=== PATIENT | female | born 1950 | race Caucasian/White ===

== ENCOUNTER 2017-10-23 05:37 | Observation (INO) | payer MEDICARE ==
[~2017-10-23] VITALS: Ht 162.6 cm; Wt 78.5 kg
--- OUTSIDE RECORDS SUMMARY | ~2017-10-23 | XMS | Encounter Summary ---
Demographics + + + | Address | [address] | | | [place] [address] | + + + | Home Phone | | + + + | Preferred Language | Unknown | + + + | Marital Status | | + + + | Mormon Affiliation | Unknown | + + + | Race | Unknown | + + + | Ethnic Group | Unknown | + + + Author + + + | Author | [facility] | | | and [place] | + + + | Organization | [facility] | | | and [place] | + + + | Address | Unknown | + + + | Phone | Unavailable | + + + Support + + +---------+ + | Name | Relationship | Address | Phone | + + +---------+ + | Brandon Glass | ECON | Unknown | | + + +---------+ + Care Team Providers + +------+ + | Care Charge Rn Name | Role | Phone | + +------+ + | Jony Haque DO | PCP | | + +------+ + Reason for Visit + + + | Reason | Comments | + + + | CPAP Follow Up | | + + + Encounter Details +--------+---------+ + + + | Date | Type | Department | Care Team | Description | +--------+---------+ + + + | 07/31/ | Office | [facility] | Robert King PA | ADRIAN on CPAP (Primary | | 2018 | Visit | SLEEP DISORDER [address] | [address] | Dx) | | | | [address] | [place], [place] | | | | | [place] [address] | [address] | | | | | [phone] | | | +--------+---------+ + + + Social History + +-------+ +--------+ + | Tobacco Use | Types | Packs/Day | Years | Date | | | | | Used | | + +-------+ +--------+ + | Former Smoker | | | | 11/17/1972 - | | | | | | 11/18/1987 | + +-------+ +--------+ + + + + | Sex Assigned at | Date Recorded | | | | + + + | Not on file | | + + + as of this encounter Last Filed Vital Signs + + + + | Vital Sign | Reading | Time Taken | + + + + | Blood Pressure | 144/74 | 07/31/20171302 PDT | + + + + | Pulse | 87 | 07/31/20171302 PDT | + + + + | Temperature | - | - | + + + + | Respiratory Rate | 16 | 07/31/20171302 PDT | + + + + | Oxygen Saturation | 96% | 07/31/2017 1303 PDT | + + + + | Inhaled Oxygen | - | - | | Concentration | | | + + + + | Weight | - | - | + + + + | Height | 162.6 cm (5' 4") | 07/31/2017 1303 PDT | + + + + | Body Mass Index | - | - | + + + + in this encounter Progress Notes Robert King PA - 07/31/2017 1300 PDTFormatting of this note may be different from the or iginal. Subjective: Patient ID: Bel Glass is a 67 y.o. female. HPI last office visit: 05/27/2017 date of split-night polysomnography: 01/10/2000 AHI: 115.3 O2%: 83.8% Machine type: ResMed AirSense 10 Mask type: DME: [place] in [place] pressure: 12-19 cm Median: 13.0 cm 95%: 13.8 cm maximum: 14.5 cm Nights using CPAP: 66/66 % of nights >4 hours: 100% average usage (all nights): 8:24 average usage (nights used): 8:24 AHI: 2.3 Bel comes in for CPAP compliance. She is doing well with her ResMed AirSense 10. She feels it is working better than her previous machine. She does not have any questions or co ncerns. I have discussed the download in detail. This shows that her sleep apnea is controlled, wi th an AHI of 2.0. It also shows that her leaks are controlled. It shows that she is wearin g her CPAP >4 hours for 100% of the nights during 30 consecutive nights. BP 144/74 | Pulse 87 | Resp 16 | Ht 1.626 m (5' 4") | SpO2 96% Review of Systems Objective: Physical Exam Assessment: Problem #1: OBSTRUCTIVE SLEEP APNEA (ZBG04-F75.33) This is controlled with CPAP. She is doing well with her CPAP usage with her ResMed AirSen se 10. She has used her CPAP >4 hours for 100% of the nights for 30 consecutive nights. Plan: 1. She is to continue with CPAP indefinitely. 2. Touch base with medical supplier twice per year to ensure that all equipment is satisfa ctory. I will follow up again in 1 year, sooner prn. At that time we will reassess with all appro priate paperwork. Fifteen minutes were spent [id number], with the majority of time spent in counseling. Robert King PA-C cc: Jony Haque MD in this encounter Plan of Treatment +--------+---------+ + + + | Date | Type | Specialty | Care Team | Description | +--------+---------+ + + + | 08/04/ | Office | Sleep Medicine | Robert King PA | | | 2018 | Visit | | [address] | | | | | | [place] | | | | | | [address] | | | | | | | | +--------+---------+ + + + as of this encounter Visit Diagnoses + + | Diagnosis | + + | ADRIAN on CPAP - Primary | + + | Obstructive sleep apnea (adult) (pediatric) | + +
--- OUTSIDE RECORDS SUMMARY | ~2017-10-23 | XMS | Clinical Summary ---
Demographics + + + | Address | [address] | | | [place] [address] | + + + | Home Phone | | + + + | Preferred Language | Unknown | + + + | Marital Status | | + + + | Protestant Affiliation | Unknown | + + + | Race | Unknown | + + + | Ethnic Group | Unknown | + + + Author + + + | Author | [facility] | | | and [place] | + + + | Organization | [facility] | | | and [place] | [...] Team Providers + +------+ + | Care Lamp Cleaner Street Light Name | Role | Phone | + +------+ + | Jony Haque DO | PP | | + +------+ + Allergies No Known Allergies Current Medications + + +--------+---------+------+------+-------+ | Prescription | Sig. | Disp. | Refills | Star | End | Statu | | | | | | t | Date | s | | | | | | Date | | | + + +--------+---------+------+------+-------+ | fluticasone | 2 sprays by Nasal | | | | | Activ | | (FLONASE) 50 | route Daily. | | | | | e | | mcg/nasal spray | | | | | | | + + +--------+---------+------+------+-------+ | UNCODED MEDICATION | Diagnosis: | 1 | 0 | 08/2 | | Activ | | | Obstructive Sleep | Device | | 11/20 | | e | | | ApneaICD-9: | | | 13 | | | | | 327.23Length of | | | | | | | | Need: 99 Months | | | | | | + + +--------+---------+------+------+-------+ | METFORMIN HCL PO | Take 1,000 mg by | | | | | Activ | | | mouth Daily. | | | | | e | + + +--------+---------+------+------+-------+ | LEVOTHYROXINE | Take 150 mcg by | | | | | Activ | | SODIUM | mouth Daily. | | | | | e | + + +--------+---------+------+------+-------+ | | Take 1 tablet by | | | | | Activ | | lisinopril-hydrochlo | mouth Daily. | | | | | e | | rothiazide | | | | | | | | (PRINZIDE,ZESTORETIC | | | | | | | | ) 20-12.5 MG per | | | | | | | | tablet | | | | | | | + + +--------+---------+------+------+-------+ | atorvaSTATin | Take 10 mg by mouth | | | | | Activ | | (LIPITOR) 10 mg | nightly. | | | | | e | | tablet | | | | | | | + + +--------+---------+------+------+-------+ | Lutein 10 MG TABS | Take by mouth | | | | | Activ | | | Daily. | | | | | e | + + +--------+---------+------+------+-------+ | Multiple | Take by mouth every | | | | | Activ | | Vitamins-Minerals | evening. | | | | | e | | (WOMENS 50+ MULTI | | | | | | | | VITAMIN/MIN) TABS | | | | | | | + + +--------+---------+------+------+-------+ | cholecalciferol | Take 1,000 Units by | | | | | Activ | | (VITAMIN D-3) 1000 | mouth Daily. | | | | | e | | units TABS | | | | | | | + + +--------+---------+------+------+-------+ | Calcium Carbonate | Take by mouth. | | | | | Activ | | (CALCIUM 600 PO) | | | | | | e | + + +--------+---------+------+------+-------+ | Multiple | Take by mouth | | | | | Activ | | Vitamins-Minerals | Daily. | | | | | e | | (HAIR SKIN AND NAILS | | | | | | | | FORMULA) TABS | | | | | | | + + +--------+---------+------+------+-------+ Active Problems + + + | Problem | Noted Date | + + + | OBSTRUCTIVE SLEEP APNEA | 09/21/2010 | + + + | DIVERTICULITIS | 09/21/2010 | + + + + + | Overview: ICD-10 Record update | + + + +---+ | HYPERTENSION | | + +---+ | DIABETES, TYPE 2 | | + +---+ | FH DIABETES | | + +---+ | FH BREAST CANCER | | + +---+ Encounters +--------+---------+ + + + | Date | Type | Specialty | Care Team | Description | +--------+---------+ + + + | 07/31/ | Office | | Robert King PA | ADRIAN on CPAP (Primary | | 2018 | Visit | | | Dx) | +--------+---------+ + + + from Last 3 Months Social History + +-------+ +--------+ + | [...] on file | | + + + Last Filed Vital Signs + + + [...] + | Oxygen Saturation | 96% | 07/31/20171302 PDT | + + + + | Inhaled Oxygen | - | - | | Concentration | | | + + + + | Weight | 79 kg (174 lb 1.6 | 11/21/20151046 PDT | | | oz) | | + + + + | Height | 162.6 cm (5' 4") | 07/31/2017 1303 PDT | + + + + | Body Mass Index | 36.39 | 11/21/20151046 PDT | + + + + Plan of Treatment +--------+---------+ + + + | Date | Type | Specialty | Care Team | Description | +--------+---------+ + + + | 08/04/ | Office | | Robert King PA | | | 2019 | Visit | | [address] | | | | | | [place] | | | | | | [address] | | | | | | | | +--------+---------+ + + + + + + + + | Health Maintenance | Due Date | Last Done | Comments | + + + + + | Hepatitis C | | | | | Screening | 3 | | | + + + + + | Diabetic Eye Exam | | | | | (Bi-Annually) | 1 | | | + + + + + | Diabetic Foot Exam | | | | | | 1 | | | + + + + + | Hemoglobin A1c Q3 | | | | | Months | 1 | | | + + + + + | Vaccine: | | | | | Dtap/Tdap/Td (1 - | 2 | | | | Tdap) | | | | + + + + + | BREAST CANCER | | | | | SCREENING (MAMM Q2 | 3 | | | | YEARS 50-74) | | | | + + + + + | Colorectal Cancer | | | | | Screening | 3 | | | | (Colonoscopy) | | | | + + + + + | Vaccine: | | | | | Pneumococcal 65+ | 8 | | | | Low/Medium Risk (1 | | | | | of 2 - PCV13) | | | | + + + + + | Vaccine: Influenza | | | | | (#1) | 8 | | | + + + + + Results Not on filefrom Last 3 Months Insurance + +--------+ +--------+ + + | Payer | Benefi | Subscriber | Type | Phone | Address | | | t Plan | ID | | | | | | / | | | | | | | Group | | | | | + +--------+ +--------+ + + | MODA | MODA | [id number] | Indemn | [phone]- | [address] [address] | | | HEALTH | | ity | [address] | [place] [address] | | | MDCR | | | | | | | SUPPL | | | | | + +--------+ +--------+ + + | MEDICARE | MEDICA | [id number] | Medica | +1- | | | | RE | | re | [phone] | | | | PART A | | | | | | | AND B | | | | | + +--------+ +--------+ + + + +--------+ +--------+ + + | Guarantor Name | Accoun | Relation to | Date | Phone | Billing Address | | | t Type | Patient | of | | | | | | | | | | + +--------+ +--------+ + + | BEL GLASS | Person | Self [birth year] Home: | [address] | | | al/Fam | | 1951 | [phone] | [place] [address] | | | td | | | [phone] | | + +--------+ +--------+ + +
--- OUTSIDE RECORDS SUMMARY | ~2017-10-23 | XMS | Clinical Summary ---
Demographics + + + | Address | [address] | | | [place] [address] | + + + | Home Phone | | + + + | Preferred Language | Unknown | + + + | Marital Status | | + + + | Scientologist Affiliation | Unknown | + + + | Race | Unknown | + + + | Ethnic Group | Unknown | + + + Author + + + | Author | [facility] | | | and [place] | + + + | Organization | [facility] | | | and [place] | [...] Team Providers + +------+ + | Care Automotive Tire Tester Name | Role | Phone | + [...] 2019 | Visit | | [address] | | | | | | [place] | | | | | | [address] | | | | | | | [...] + + | MODA | MODA | [id number] | Indemn | [phone]- | [address] [address] | | | HEALTH | | ity | [address] | [place] [address] | | | MDCR | | | | | | | SUPPL | | | | | + +--------+ +--------+ + + | MEDICARE | MEDICA | [id number] | Medica | +1- | | | [...] Self | [birth year] | Home: | [address] | | | al/Fam | | 1951 | [phone] | [place] [address] | | | td | | | [phone] | | + +--------+ +--------+ + +
--- OUTSIDE RECORDS SUMMARY | ~2017-10-23 | XMS | Encounter Summary ---
Demographics + + + | Address | [address] | | | [place] [address] | + + + | Home Phone | | + + + | Preferred Language | Unknown | + + + | Marital Status | | + + + | Episcopalian Affiliation | Unknown | + + + | Race | Unknown | + + + | Ethnic Group | Unknown | + + + Author + + + | Author | [facility] | | | and [place] | + + + | Organization | [facility] | | | and [place] [...] Team Providers + +------+ + | Care Cushion Cover Inspector Name | Role | Phone | + [...] + | 07/31/ | Office | [facility] | Robert King PA | ADRIAN on CPAP (Primary | | 2018 | Visit | SLEEP DISORDER [address] | [address] | Dx) | | | | [address] [place] | [place], [place] | | | | | [place] [address] | [address] | | | | | [phone] | | | +--------+---------+ + + + [...] type: ResMed AirSense 10 Mask type: DME: [place] in [place] pressure: 12-19 cm Median: 13.0 cm 95%: [...] Exam Assessment: Problem #1: OBSTRUCTIVE SLEEP APNEA (JAE73-T46.33) This is controlled with CPAP. She is [...] appro priate paperwork. Fifteen minutes were spent [id number], with the majority of time spent in counseling. Robert King PA-C cc: Jony Haque MD in this encounter Plan of Treatment +--------+---------+ + + + | Date | Type | Specialty | Care Team | Description | +--------+---------+ + + + | 08/04/ | Office | Sleep Medicine | Robert King PA | | | 2018 | Visit | | [address] | | | | | | [place] | | | | | | [address] | | | | | | | | +--------+---------+ + + + as of this encounter Visit Diagnoses + + | Diagnosis | + + | ADRIAN on CPAP - Primary | + + | Obstructive sleep apnea (adult) (pediatric) | + +
--- OUTSIDE RECORDS SUMMARY | ~2017-10-23 | XMS | Encounter Summary ---
Demographics + + + | Address | [address] | | | [place] [address] | + + + | Home Phone | | + + + | Preferred Language | Unknown | + + + | Marital Status | | + + + | Restoration Affiliation | Unknown | + + + | Race | Unknown | + + + | Ethnic Group | Unknown | + + + Author + + + | Author | [facility] | | | and [place] | + + + | Organization | [facility] | | | and [place] [...] Team Providers + +------+ + | Care Senior Litigation Paralegal Name | Role | Phone | + [...] + | 07/31/ | Office | [facility] | Robert King PA | ADRIAN on CPAP (Primary | | 2018 | Visit | SLEEP DISORDER [address] | [address] | Dx) | | | | [address] [place] | [place], [place] | | | | | [place] [address] | [address] | | | | | [phone] | | | +--------+---------+ + + + [...] type: ResMed AirSense 10 Mask type: DME: [place] in [place] pressure: 12-19 cm Median: 13.0 cm 95%: [...] Exam Assessment: Problem #1: OBSTRUCTIVE SLEEP APNEA (PTF17-C10.33) This is controlled with CPAP. She is [...] appro priate paperwork. Fifteen minutes were spent [id number], with the majority of time spent in counseling. Robert King PA-C cc: Jony Haque MD in this encounter Plan of Treatment +--------+---------+ + + + | Date | Type | Specialty | Care Team | Description | +--------+---------+ + + + | 08/04/ | Office | Sleep Medicine | Robert King PA | | | 2018 | Visit | | [address] | | | | | | [place] | | | | | | [address] | | | | | | | | +--------+---------+ + + + as of this encounter Visit Diagnoses + + | Diagnosis | + + | ADRIAN on CPAP - Primary | + + | Obstructive sleep apnea (adult) (pediatric) | + +
--- OUTSIDE RECORDS SUMMARY | ~2017-10-23 | XMS | Clinical Summary ---
Demographics + + + | Address | [address] | | | [place] [address] | + + + | Home Phone | | + + + | Preferred Language | Unknown | + + + | Marital Status | | + + + | Restoration Affiliation | Unknown | + + + | Race | Unknown | + + + | Ethnic Group | Unknown | + + + Author + + + | Author | [facility] | | | and [place] | + + + | Organization | [facility] | | | and [place] [...] Team Providers + +------+ + | Care Basic Sciences Professor Name | Role | Phone | + [...] 2019 | Visit | | [address] | | | | | | [place] | | | | | | [address] | | | | | | | [...] + + | MODA | MODA | [id number] | Indemn | [phone]- | [address] [address] | | | HEALTH | | ity | [address] | [place] [address] | | | MDCR | | | | | | | SUPPL | | | | | + +--------+ +--------+ + + | MEDICARE | MEDICA | [id number] | Medica | +1- | | | [...] Self | [birth year] | Home: | [address] | | | al/Fam | | 1951 | [phone] | [place] [address] | | | td | | | [phone] | | + +--------+ +--------+ + +
--- OUTSIDE RECORDS SUMMARY | ~2017-10-23 | XMS | Encounter Summary ---
Demographics + + + | Address | [address] | | | [place] [address] | + + + | Home Phone | | + + + | Preferred Language | Unknown | + + + | Marital Status | | + + + | Holiness Affiliation | Unknown | + + + | Race | Unknown | + + + | Ethnic Group | Unknown | + + + Author + + + | Author | [facility] | | | and [place] | + + + | Organization | [facility] | | | and [place] [...] Team Providers + +------+ + | Care Cardiovascular Specialist Name | Role | Phone | + [...] + | 07/31/ | Office | [facility] | Robert King PA | ADRIAN on CPAP (Primary | | 2018 | Visit | SLEEP DISORDER [address] | [address] | Dx) | | | | [address] [place] | [place], [place] | | | | | [place] [address] | [address] | | | | | [phone] | | | +--------+---------+ + + + [...] type: ResMed AirSense 10 Mask type: DME: [place] in [place] pressure: 12-19 cm Median: 13.0 cm 95%: [...] Exam Assessment: Problem #1: OBSTRUCTIVE SLEEP APNEA (FDM14-Q60.33) This is controlled with CPAP. She is [...] appro priate paperwork. Fifteen minutes were spent [id number], with the majority of time spent in counseling. Robert King PA-C cc: Jony Haque MD in this encounter Plan of Treatment +--------+---------+ + + + | Date | Type | Specialty | Care Team | Description | +--------+---------+ + + + | 08/04/ | Office | Sleep Medicine | Robert King PA | | | 2018 | Visit | | [address] | | | | | | [place] | | | | | | [address] | | | | | | | | +--------+---------+ + + + as of this encounter Visit Diagnoses + + | Diagnosis | + + | ADRIAN on CPAP - Primary | + + | Obstructive sleep apnea (adult) (pediatric) | + +
--- OUTSIDE RECORDS SUMMARY | ~2017-10-23 | XMS | Clinical Summary ---
Demographics + + + | Address | [address] | | | [place] [address] | + + + | Home Phone | | + + + | Preferred Language | Unknown | + + + | Marital Status | | + + + | Hoahaoism Affiliation | Unknown | + + + | Race | Unknown | + + + | Ethnic Group | Unknown | + + + Author + + + | Author | [facility] | | | and [place] | + + + | Organization | [facility] | | | and [...] Team Providers + +------+ + | Care Offal Icer Poultry Name | Role | Phone | + [...] 2019 | Visit | | [address] | | | | | | [place] | | | | | | [address] | | | | | | | [...] + + | MODA | MODA | [id number] | Indemn | [phone]- | [address] [address] | | | HEALTH | | ity | [address] | [place] [address] | | | MDCR | | | | | | | SUPPL | | | | | + +--------+ +--------+ + + | MEDICARE | MEDICA | [id number] | Medica | +1- | | | [...] Self | [birth year] | Home: | [address] | | | al/Fam | | 1951 | [phone] | [place] [address] | | | td | | | [address] | | + +--------+ +--------+ + +
[~2017-10-23 05:37] MED LIST: CALCIUM + VITA1 EACH PO; DAILY MULTIPLE1 EACH PO; FLUTICASONE PRO16 GM NS; FORTAMET500 MG PO; IBUPROFEN800 MG PO; LIPITOR10 MG PO; LISINOPRIL-HCT1 EACH PO; LISINOPRIL20 MG PO; NORCO 5-325 TA1 EACH PO; SYNTHROID125 MCG PO; VITAMIN D31000 UNI1 PO
--- NOTE | 2017-10-23 07:50 | NUR ---
PT HERE FROM ER, ALERT AND ORIENTED X4. PT DENIES PAIN, NAUSEA, AND SOB AT THIS TIME. PT ABLE TO TALK, AND IS EASILY UNDERSTOOD BY ALL CARE STAFF. VITALS WNL AT THIS TIME, PT ON ROOM AIR.
--- NOTE | 2017-10-23 08:19 | NUR ---
IV SITE INTACT, NO REDNESS OR SWELLING NOTED, PT DENIES PAIN WITH FLUSH. PT DENIES PAIN, NAUSEA, AND SOB IN GENERAL. PT ALERT AND ORIENTED X4, CHEERFUL AND COOPERATIVE. SPOUSE IS AT THE BEDSIDE.
--- NOTE | 2017-10-23 09:25 | NUR ---
PT REMAINS ALERT AND ORIENTED X4. DENIES SWELLING IN TOUNG, FACE, AND THROAT INCREASING AT ALL. PT DENIES SOB, O2 SATS 98% ON ROOM AIR.
--- NOTE | 2017-10-23 10:20 | NUR ---
PT UP AMBULATED TO TOILET, ABLE TO VOID 900 ML, THEN AMBULATED BACK TO BED, PT STEADY ON HER FEET. ALERT AND ORIENTED X4. PT REPORTS SWELLING DECREASING.
--- NOTE | 2017-10-23 11:07 | NUR ---
PT REQUESTING TO EAT OR DRINK SOMETHING, EDUCATED PT ON RISKS AT THIS TIME DUE TO SWELLING. PROVIDED PT WITH TOOTHBRUSH AND WASHCLOTH. PT ABLE TO BRUSH HER OWN TEETH AND WASH HER FACE. PROVIDED LIP BALM WELL. PT STATES SHE IS MORE COMFORTABLE NOW.
--- NOTE | 2017-10-23 12:21 | NUR ---
IV SITE INTACT, NO REDNESS OR SWELLING NOTED, PT DENIES PAIN AT SITE. PT DENIES NAUSEA, PAIN, AND SOB. FACIAL SWELLING IS VISABLY DECREASED. PT ALSO STATES THE SWELLING FEELS LIKE IT IS DECREASING. PT ALERT AND ORIENTED X4
--- NOTE | 2017-10-23 12:36 | NUR ---
CALLED LEFT MESSAGE FOR TO UPDATE ON PT HR ELEVATED TO 105.
--- NOTE | 2017-10-23 12:40 | CONS ---
[facility] [address], [place] [address] Signed DATE OF CONSULTATION: 10/23/2017 TIME: 07:15 a.m. CONSULTING PHYSICIAN: Jostin Shaikh MD. ADDITIONAL STORAGE ARCHITECT: Peter Almaraz MD PROBLEM: Angioedema of right tongue, possible airway threat. HISTORY: This 67-year-old white woman is on lisinopril for hypertension. She awakened this morning with some hypersalivation and a very enlarged tongue. She presented to the emergency room where she was evaluated by Dr. Nolan. She was noted to likely have an allergy related to her lisinopril. She was treated with epinephrine, H2 blockers, and Benadryl and request was made for a standby for possible surgical airway control. Consultation was undertaken with Dr. Almaraz too. The patient is starting to feel somewhat better. She has no stridor nor sign of impending airway occlusion. She does feel somewhat "scratchy" in her throat. PAST MEDICAL HISTORY: Does include thyroidectomy in the past. She does have diabetes. PHYSICAL EXAMINATION: GENERAL: Somewhat obese woman, who is sitting upright and speaking with Dr. Almaraz at this time. She shows no sign of cyanosis or severe air hunger. HEENT: Her voice is slightly hoarse, but not much. Examination of her tongue is noted. She has impressive angioedema of the right lateral tongue. She is able to protrude her tongue reasonably well. Trachea is midline. There is a scar central midline. She has a short chin. CHEST: Shows no sign of audible wheezing or tachypnea. ASSESSMENT: The patient certainly has potential for airway compromise, but appears to be improving on medications that have already been given. Electronically Signed By: JOSTIN SHAIKH MD 10/23/17 1240 PATIENT NAME: BAO ARZATE CONSULTATION DATE OF : 54 REPORT #: [id number] PHYSICIAN: JOSTIN SHAIKH MD PCP: DILIA TUCKER DO REPORT IS CONFIDENTIAL AND NOT TO BE RELEASED WITHOUT AUTHORIZATION [facility] [address], [place] [address] Signed I have conferred with Dr. Almaraz. We will plan to admit her to the intensive care unit for further monitoring. A bedside mist may be helpful. Steroids are anticipated as well as Benadryl and H2 blockers. Obviously, she should avoid lisinopril. Tracheostomy set will be standing by on the possibility of need for emergent surgical airway. Additionally, it is a consideration if needed that a laryngoscopy might be still possible as though the tongue is rather swollen on the right side. She is able to protrude it and unless severe edema of the larynx itself is a problem that still may be an option. MD CARSON Harvey/HATTIE /[id number] cc: MD Peter Cruz MD Copies: PADMINI NOLAN MD, BRIAN DO ~ Electronically Signed By: JOSTIN SHAIKH MD 10/23/17 1240 PATIENT NAME: CARITOBAO CONSULTATION DATE OF : 54 REPORT #: [id number] PHYSICIAN: JOSTIN SHAIKH MD PCP: DILIA TUCKER DO REPORT IS CONFIDENTIAL AND NOT TO BE RELEASED WITHOUT AUTHORIZATION
--- NOTE | 2017-10-23 13:07 | NUR ---
DR GREER SEE PT, NEW ORDERS FOR DIET RECEIVED AT THIS TIME. STAFF ORDER PT CLEAR LIQUID DIET, AND GAVE HER FRESH ICE WATER ALSO AT THIS TIME. PT DENIES AND C/O'S AT THIS TIME.
--- NOTE | 2017-10-23 13:14 | NUR ---
PT RETURNED AT THIS TIME.
== END 2017-10-23 15:59 | disposition home or self-care (01) ==
LOC: ED 05:37 → CCU 05:39 → ED 07:28 → CCU 07:30
PROVIDERS: ADMIT Student in an Organized Health Care Education/Training Program
DX: T78.3XXA Angioneurotic edema, initial encounter (principal); E66.9 Obesity, unspecified; I10 Essential (primary) hypertension; E11.9 Type 2 diabetes mellitus without complications; G47.30 Sleep apnea, unspecified; E89.0 Postprocedural hypothyroidism; E78.5 Hyperlipidemia, unspecified; Z87.891 Personal history of nicotine dependence; Z88.5 Allergy status to narcotic agent; Z79.84 Long term (current) use of oral hypoglycemic drugs; Z79.1 Long term (current) use of non-steroidal anti-inflammatories (NSAID); Z79.891 Long term (current) use of opiate analgesic; Z79.51 Long term (current) use of inhaled steroids; Z79.899 Other long term (current) drug therapy; Z68.29 Body mass index [BMI] 29.0-29.9, adult
CPT/HCPCS: 36415; 80048; 83036; 96372; 96374; 96375; 96376; 99285; G0378; J0171; J1200; J1815; J2930; J7120

== ENCOUNTER 2018-04-02 07:06 | Day surgery (SDC) | payer MEDICARE, OTHER ==
[~2018-04-02] VITALS: Ht 162.6 cm; Wt 76.7 kg
[~2018-04-02 07:06] MED LIST changes: +METOPROLOL SUCC25 MG PO
[2018-04-02] MEDS ORDERED: VITAMIN C1000 MG PO (07:22)
[2018-04-02] MEDS ORDERED: LUTEIN20 MG PO (07:22)
[2018-04-02] MEDS ORDERED: JANUVIA100 MG PO (07:23)
--- NOTE | 2018-04-02 08:40 | NUR ---
04/02/18 0840 Ame,Yamileth 0821 PT ARRIVED ON 4L VIA MASK, PT ASLEEP AND WAKES TO TACTILE STIMULI. PERIODS OF APNEA NOTED WHEN PT IS ASLEEP. PT WAKES AND IS ENCOURAGED TO DEEP BREATHE.
--- NOTE | 2018-04-02 10:37 | NUR ---
PT IS ALERT, ORIENTED AND SUPPORTED BY HER KONG. ROUTINE SCOPE-EVERY 5 YRS SAYS PT. PREP LITTLE ISSUE, EXTENDED A BLESSING, STAFF IN TO TAKE PT. WILL FOLLOW NEEDED
--- NOTE | 2018-04-03 06:39 | OR ---
[facility] [address], [place] [address] Signed DATE OF OPERATION: 04/02/2018 SURGEON: Israel Claire MD PREOPERATIVE DIAGNOSES: 1. Family history of colon cancer in two maternal aunts, two maternal uncles, one paternal uncle and one sister. 2. Diverticulosis. 3. Perianal skin tags. 4. Hyperplastic rectal polyp 2012. POSTOPERATIVE DIAGNOSES: 1. Moderate internal and external anal skin tags. 2. Moderate sigmoid diverticulosis. 3. Hypertension. PROCEDURE: Colonoscopy without biopsy. ESTIMATED BLOOD LOSS: None. INDICATIONS: Bel is a 67-year-old diabetic female, who comes every 5 years for followup colonoscopy. She has a strong family history of colon cancer. She herself has perianal skin tags, which were becoming troublesome to her. I told her we could remove those, but we usually do it in the operating room since some are inside and some are outside. In addition, she is known to have moderate diverticulosis and a few small hyperplastic polyps were taken out of the rectum in 2012. In the meantime, she has been retired and says she is doing great. We noticed in the office, her blood pressure was 179/86. I had mentioned that to her. Today, her systolic blood pressures are running in the 170s up to 210 in our preop area as well as during our procedure. In fact, her blood pressure did not drop even with the sedation. Once again, we had mentioned it to her before the sedation, so she can review that with her primary care provider. In the office, I gave her a pamphlet on colonoscopy and we had reviewed the nature of the test along with the risks including, but not limited to gas bloating, crampy abdominal pain, bleeding, perforation, requiring surgery, and missed diagnosis. We also discussed the need for IV conscious sedation. She had expressed understanding and wished to proceed. PROCEDURE NOTE: Electronically Signed By: ISRAEL CLAIRE MD 04/03/18 0639 PATIENT NAME: BEL ARZATE OPERATIVE REPORT DATE OF : 54 REPORT #: [id number] PHYSICIAN: ISRAEL CLAIRE MD PCP: JONY TUCKER DO REPORT IS CONFIDENTIAL AND NOT TO BE RELEASED WITHOUT AUTHORIZATION [facility] [address], [place] [address] Signed Bel was taken into our endoscopy suite and placed in the left lateral decubitus position. She was given 5 mg of Versed and 100 mcg of fentanyl to cover the case. A digital rectal exam was performed and we can feel and see the external and internal anal skin tags. They are moderate in size, moderately irritated and quite indurated. She has good sphincter tone. Not really too much in the way of hemorrhoid tissue. The adult colonoscope was introduced and advanced all the way around into the cecum under direct visualization of camera without difficulty. Her prep was quite good. The scope was slowly withdrawn. Again, she has moderate sigmoid diverticulosis. They are moderate in size, minimal to moderate in number, and scattered about. The rectum was unremarkable. Upon retroflexion of the scope, we can see at least four internal anal skin tags. Ranging from small in size up to moderate in size. After this, the gas was suctioned out and the colonoscope removed. Bel tolerated the procedure quite well. RECOMMENDATIONS: Bel can return in 5 years for repeat colonoscopy. She wants to address the anal skin tag surgically. She is welcome to come back to the office and we can review that. In addition, her systolic blood pressures were running in the 170s up to 210. She needs to review her hypertension with her primary care provider. Israel Claire MD ALB/MODL /[id number] cc: MD Jony Etienne DO Copies: ISRAEL CLAIRE MD, ARIAN DO ~ Electronically Signed By: ISRAEL CLAIRE MD 04/03/18 0639 PATIENT NAME: BEL ARZATE OPERATIVE REPORT DATE OF : 54 REPORT #: [id number] PHYSICIAN: ISRAEL CLAIRE MD PCP: JONY TUCKER DO REPORT IS CONFIDENTIAL AND NOT TO BE RELEASED WITHOUT AUTHORIZATION
== END 2018-04-02 09:10 | disposition home or self-care (01) ==
LOC: OPS 07:06 → DS 07:06 → OPS 09:10
PROVIDERS: Colon & Rectal Surgery
PROC: 0DJD8ZZ Inspection of Lower Intestinal Tract, Via Natural or Artificial Opening Endoscopic (ICD-10-PCS; principal; 2018-04-02 08:00)
DX: Z12.11 Encounter for screening for malignant neoplasm of colon (principal); K64.4 Residual hemorrhoidal skin tags; K64.8 Other hemorrhoids; K57.30 Diverticulosis of large intestine without perforation or abscess without bleeding; I10 Essential (primary) hypertension; G47.30 Sleep apnea, unspecified; E78.5 Hyperlipidemia, unspecified; E03.9 Hypothyroidism, unspecified; E11.9 Type 2 diabetes mellitus without complications; Z88.8 Allergy status to other drugs, medicaments and biological substances; Z86.010 Personal history of colon polyps; Z80.0 Family history of malignant neoplasm of digestive organs
CPT/HCPCS: 99153; G0500; J2250; J3010; J7120

== ENCOUNTER 2020-12-07 06:05 | Day surgery (SDC) | payer MEDICARE, OTHER ==
[~2020-12-07] VITALS: Ht 162.6 cm; Wt 75.5 kg
[~2020-12-07 06:05] MED LIST changes: +JANUVIA100 MG PO; +LUTEIN20 MG PO; +VITAMIN C1000 MG PO
--- NOTE | 2020-12-07 08:42 | NUR ---
PT ALERT, ORIENTED AND SUPPORTED BY HER KONG. PT EXPRESSED NO REAL NEED TO KNOW VERY MUCH ABOUT HER SURGERY TODAY-JUST DO IT. ALL QUESTIONS PT ASKED WERE ANSWERED. DR SHAIKH IN, GAVE BLESSING, WILL FOLLOW
[2020-12-07] MEDS ORDERED: HYDROCODON-ACE1 EA10 PO (09:06)
[2020-12-07] MEDS ORDERED: IBUPROFEN600 MG PO (09:06)
[2020-12-07] MEDS ORDERED: ACETAMINOPHEN500 MG PO (09:06)
--- NOTE | 2020-12-07 09:11 | NUR ---
12/07/20 0911 Samira Marrero 0852- PT ARRIVES TO PACU NONAROUSABLE TO NOXIOUS STIMULI WITH AN OPA IN PLACE. SYSTOLIC BP IN THE 80'S. SCREED PERSON AWARE. FLUIDS ARE OPEN AND INFUSING. RESP EVEN AND UNLABORED. OXYGEN SAT HIGH 90'S TO 100% ON 6L VIA MASK. 0856- HEAD OF BED DECREASED AND PT BEING STIMULATED. PT RESPONDS SLIGHTLY. NOT FOLLOWING INSTRUCTIONS. OPA LEFT IN PLACE. 0857- PT RESPONDING MORE AND ABLE TO FOLLOW INSTRUCTIONS. PT OPENS MOUTH TO REMOVE OPA WITH INSTRUCTION. OXYGEN MASK REPLACED AT 6L. BP IN THE LOW 100'S SYSTOLICALLY. SCREED PERSON AT THE BEDSIDE AND AWARE.
--- NOTE | 2020-12-07 10:09 | NUR ---
PATIENT BACK TO ROOM FROM PACU. RECEIVED REPORT FROM JUHI GUTIERREZ. VSGerson. PATIENT IS ON 2 LITERS OF O2 PER NC BUT SHE IS VERY SLEEPY AND SWITCHED TO HER C-PAP FOR NOW. 02 SATS IN THE HIGH 90'S. PATIENT STATES SHE IS NAUSEATED AND ZOFRAN GIVEN PER JUHI. RATES HER PAIN 6/10. UMBILICAL INCISION HAD A SMALL AMOUNT OF BLOOD POOLING. THE OTHER 3 INCISONS HAVE MINIMAL RED DRAINAGE. PATIENT DECLINES WATER AND CRACKERS AT THIS TIME. AT BEDSIDE. CALL LIGHT WITHIN REACH.
--- NOTE | 2020-12-07 11:00 | NUR ---
PATIENT IS SLEEPING BUT EASILY AROUSABLE. VSS. PATIENT IS USING HER CPAP WITH O2 SATS AROUND 95. DENIES NAUSEA. PAIN 4/10. PATIENTS UMBILICAL INCISION HAD A SMALL AMOUNT OF BLOOD POOLING. THE 3 OTHER INCISION HAVE MINIMAL DRAINAGE. AT BEDSIDE. CALL LIGHT WITH IN REACH.
--- NOTE | 2020-12-07 11:41 | NUR ---
PATIENT RATES PAIN A 5/10. PAIN MEDICATION GIVEN PER MAR.
--- NOTE | 2020-12-07 12:05 | NUR ---
PATIENT RESTING COMFORTABLY IN BED. SHE IS AWAKE. VSS. SHE IS OFF HER CPAP AND O2 SATS ON RA ARE AROUND 96. HER PAIN IS STILL A 5/10 BUT STARTING GETTING BETTER. DENIES NAUSEA. UMBILICAL INCISION HAS A SAMLL AMOUNT OF BLOOD POOLING. APPLIED A 2X2 WITH TAPE. OTHER INCISIONS HAVE A SMALL AMOUNT OF DRAINAGE. PATIENT IS DRINKING WATER. CALL LIGHT WITHIN REACH. 1215-PATIENT UP TO RESTROOM WITH 1 RN ASSIST. GAIT STEADY AND TOLERATED WELL. PATIENT VOIDED 750 ML.
--- NOTE | 2020-12-07 13:06 | NUR ---
PATIENT IS RESTING IN BED. VSS. O2 SATS IN HIGH 90'S ON RA. PAIN IS 3/10. DENIES NAUSEA. REINFORCED DRESSING ON THE UMBILICAL INCISION IS CLEAN DRY AND INTACT. OTHER 3 INCISIONS HAVE SMALL AMOUNT OF DRAINAGE. CALL LIGHT WITHIN REACH. PATIENT IS EATING LUNCH.
--- NOTE | 2020-12-07 14:06 | NUR ---
[id number] PROVIDED PATEINT WITH DISCHARGE INSTRUCTIONS. PATIENT VERBALIZED UNDERSTANDING AND ALL QUESTIONS ANSWERED. PROVIDED PATIENT WITH WHEELCHAIR RIDE TO FRONT OF [facility] WHERE WAS WAITING WITH CAR.
--- NOTE | 2020-12-08 13:12 | PATH ---
[facility] [address], [place] [address] Signed SPECIMEN(S): A GALLBLADDER SPECIMEN SOURCE: A. GALLBLADDER CLINICAL HISTORY: Laparoscopic cholecystectomy. Cholecystitis. FINAL PATHOLOGIC DIAGNOSIS: Gallbladder, cholecystectomy: - Gallbladder with cholesterolosis. - Adenomyomatosis of the gallbladder. COMMENT: Adenomyomatosis of the gallbladder is a common, distinct, noninflammatory, benign condition that has been reported in up to 2-8.7% of cholecystectomy specimens. It is characterized by excessive proliferation of surface epithelium with deep and branching invaginations into the thickened muscularis propria. TWK:[facility]:C2NR MICROSCOPIC EXAMINATION: Histologic sections of all submitted blocks are examined by light microscopy. These findings, together with the gross examination, support the pathologic diagnosis. GROSS DESCRIPTION: The specimen, labeled "RE, gallbladder," is received in formalin and consists of Specimen: Disrupted gallbladder. Dimensions: 6.3 x 2.9 cm. Serosa: Violaceous and smooth with attached adipose tissue. Cystic Duct: Unobstructed. Calculi: Not grossly identified. Mucosa: Brown-contreras with yellow flecking. Wall thickness: Up to 0.7 cm. Lymph node: No pericystic lymph nodes are grossly identified. Additional: A 1.0 x 0.9 x 0.8 cm multiloculated submucosal fundic cyst measuring 5.8 cm to cystic duct; inked blue. Concrete Carpenter sections are submitted in cassettes (A1-A2). AT (under the direct supervision of a pathologist) PATIENT NAME: BAO ARZATE PATHOLOGY DATE OF : 54 REPORT #: [id number] PHYSICIAN: BRIAN WARD PCP: DILIA TUCKER DO REPORT IS CONFIDENTIAL AND NOT TO BE RELEASED WITHOUT AUTHORIZATION [facility] [address] [place] [address] Signed The Gross Description was prepared using a voice recognition system. The report was reviewed for accuracy; however, sound-alike word errors, addition and/or deletions may occur. If there is any question about this report, please contact Client Services. PERFORMING LABORATORY: The technical component was performed [place] [address] (Global Compensation Director: Maryann Patino MD; CLIA# [id number]). Professional interpretation was performed by [facility], [address] [address] (CLIA# [id number]). Diagnostician: Stanley Peacock MD Pathologist Electronically Signed 12/08/2020 Copies: ~ PATIENT NAME: BAO ARZATE PATHOLOGY DATE OF : 54 REPORT #: [id number] PHYSICIAN: BRIAN WARD PCP: DILIA TUCKER DO REPORT IS CONFIDENTIAL AND NOT TO BE RELEASED WITHOUT AUTHORIZATION
--- NOTE | 2020-12-08 15:08 | OR ---
[facility] [address], [place] [address] Signed DATE OF OPERATION: 12/07/2020 SURGEON: Jostin Shaikh MD PREOPERATIVE DIAGNOSES: 1. Chronic acalculous cholecystitis. 2. Moderate obesity. POSTOPERATIVE DIAGNOSES: 1. Chronic acalculous cholecystitis. 2. Moderate obesity. 3. Fatty liver. PROCEDURES: 1. Laparoscopic cholecystectomy with intraoperative cholangiogram. 2. Surgeon-directed fluoroscopy. ANESTHESIA: General endotracheal; akua Marcia, BUGGY OPERATOR and local 20 mL of 0.25% Marcaine with epinephrine. INDICATION: This 70-year-old white woman is a patient of Dr. Jony Tucker. She has had symptoms typical of biliary disease including right subcostal and epigastric pain and subscapular pain. Evaluation included an ultrasound which showed no evidence of stones. The gallbladder wall was visible, but there was no objective thickening. A CCK-HIDA test was performed on October 27, 2020 showing essentially no ejection fraction at all. The patient did experience minimal symptoms with the infusion. She is admitted at this time to undergo cholecystectomy for acalculous cholecystitis. She understands the risks of bleeding, infection, bile duct injury, need for open procedure and other unforeseen complications. She understands this and she wished to proceed. Of note, CT scan and ultrasound had shown a 3 cm periportal lymph node. Fatty infiltration of the liver had been noted on imaging study as well. FINDINGS: There was no evidence of a periportal lymph node on the examined area and certainly none in relation to the gallbladder itself. Gallbladder itself was quite markedly chronically inflamed with dense omental adhesions to the undersurface of the gallbladder. The cystic duct was impressively narrow, although it did allow for Electronically Signed By: JOSTIN SHAIKH MD 12/08/20 1508 PATIENT NAME: BAO ARZATE OPERATIVE REPORT DATE OF : 54 REPORT #: [id number] PHYSICIAN: JOSTIN SHAIKH MD PCP: JONY TUCKER DO REPORT IS CONFIDENTIAL AND NOT TO BE RELEASED WITHOUT AUTHORIZATION [facility] [address], [place] [address] Signed cholangiogram, which was normal. The gallbladder once excised and opened showed cholesterolosis, but no evidence of stones. Cholangiogram was normal. DESCRIPTION OF PROCEDURE: The patient was brought to the operating room, given a general endotracheal anesthetic. Preoperative antibiotic Ancef was given. Sequential compression device stockings were placed and heparin subcutaneously administered. The abdomen was prepared with a chlorhexidine solution and draped sterilely. Infraumbilical incision was made and using an open Juanpablo cannula technique, pneumoperitoneum achieved to a level of 14 mmHg of carbon dioxide gas. Intraabdominal inspection showed no sign of ascites or carcinomatosis. The gallbladder was noted to be densely adherent to omental adhesions. The liver had a fair amount of fatty infiltration. Three additional trocars were placed in usual configuration in the subxiphoid, right midclavicular, and right anterior axillary line. The gallbladder apex could be elevated somewhat allowing for dissection of omental adhesions freeing it from the gallbladder itself. Additional elevation of gallbladder to then be undertaken. Once the gallbladder was freed of its adhesions, the infundibulum was grasped and using blunt and electrocautery dissection, the triangle of Calot was dissected free identifying well a cystic arterial branch. This was doubly clipped and divided. The cystic duct was well demonstrated and surprisingly narrowing its diameter. The clip was applied high on the cystic duct essentially in the lower part of the gallbladder itself. This allowed for a transverse choledochotomy and the gallbladder cystic duct junction had placement of Rausch type cholangiocatheter for intraoperative cholangiogram. Surgeon-directed fluoroscopy allowed for good visualization of the biliary tree with prompt emptying of contrast into the duodenum. There was no sign of filling defect, biliary anomalies or other problem. The catheter was removed and the cystic duct was triply clipped and divided. The gallbladder was then dissected free in a retrograde fashion using electrocautery. The gallbladder was extracted through the infraumbilical port site without problem, opened on the back table and found to have cholesterolosis, but no sign of stone or neoplasm. There was a thick intramural area at the apex of the gallbladder, but this did not represent mucosal neoplasm. Irrigation was undertaken of subhepatic space, electrocautery was used to secure hemostasis fully. I saw no evidence of periportal lymph node or lymphadenopathy. Excess irrigation of fluid was suctioned free. The trocars removed under direct visualization showing no sign of bleeding. The infraumbilical fascial incision was reapproximated with interrupted 0 Vicryl suture. 20 mL of 0.25% Marcaine with epinephrine injected locally. The skin was then closed with interrupted 3-0 Vicryl. Steri-Strips were applied. The patient was ultimately extubated and transferred to the recovery room in good condition having suffered no complication. Sponge, needle, and counts were reported as correct x3. Electronically Signed By: JOSTIN SHAIKH MD 12/08/20 1508 PATIENT NAME: BAO ARZAET OPERATIVE REPORT DATE OF : 54 REPORT #: [id number] PHYSICIAN: JOSTIN SHAIKH MD PCP: JONY TUCKER DO REPORT IS CONFIDENTIAL AND NOT TO BE RELEASED WITHOUT AUTHORIZATION [facility] [address] [place], [place] [address] Signed MD CARSON Harvey/HATTIE /[id number] cc: Jony Tucker DO Copies: JONY TUCKER DO ~ Electronically Signed By: JOSTIN SHAIKH MD 12/08/20 1508 PATIENT NAME: BAO ARZATE OPERATIVE REPORT DATE OF : 54 REPORT #: [id number] PHYSICIAN: JOSTIN SHAIKH MD PCP: JONY TUCKER DO REPORT IS CONFIDENTIAL AND NOT TO BE RELEASED WITHOUT AUTHORIZATION
== END 2020-12-07 13:49 | disposition home or self-care (01) ==
LOC: DS 06:05
PROVIDERS: ATTEND Surgery
PROC: BF10YZZ Fluoroscopy of Bile Ducts using Other Contrast (ICD-10-PCS; 2020-12-07)
PROC: 0FT44ZZ Resection of Gallbladder, Percutaneous Endoscopic Approach (ICD-10-PCS; principal; 2020-12-07 06:45)
DX: K81.1 Chronic cholecystitis (principal); D13.5 Benign neoplasm of extrahepatic bile ducts; I10 Essential (primary) hypertension; G47.30 Sleep apnea, unspecified; E11.9 Type 2 diabetes mellitus without complications; E89.0 Postprocedural hypothyroidism; E78.5 Hyperlipidemia, unspecified; K76.0 Fatty (change of) liver, not elsewhere classified; E66.9 Obesity, unspecified; Z88.8 Allergy status to other drugs, medicaments and biological substances; Z87.891 Personal history of nicotine dependence; Z79.84 Long term (current) use of oral hypoglycemic drugs; Z68.29 Body mass index [BMI] 29.0-29.9, adult
CPT/HCPCS: 74300; A9270; J0330; J0690; J1644; J1885; J2001; J2250; J2405; J2704; J7121; Q9967